=== PATIENT | male | born 1970 | race African-American/Black ===

== ENCOUNTER 2017-02-23 10:48 | Emergency (ER) | payer SELFPAY ==
[~2017-02-23] VITALS: Ht 177.8 cm; Wt 87.0 kg
[~2017-02-23 10:48] MED LIST: AUGM875T PO; NAPR500 PO; PERC5TAB12 PO
[2017-02-23 10:50] VITALS: BP 161/109; PULSE 85; RESP 20; TEMP 97.8; O2SAT 96
[2017-02-23] MEDS ORDERED: SODIUM CHLOR 0.9% 1000 ML INJ 1,000 ML IV SCH (11:06)
[2017-02-23] MEDS ORDERED: MORPHINE SULFATE 4 MG/ML INJ IV PUSH ONE (11:15)
[2017-02-23] MEDS ORDERED: ONDANSETRON HCL 4 MG/2 ML VIAL IVP ONE (11:15)
[2017-02-23] MEDS ORDERED: SODIUM CHLORIDE 0.9% FLUSH 10 ML FLUSH IV FLUSH PRN (11:15)
[2017-02-23] MEDS ORDERED: DIAZEPAM 5 MG TAB PO ONE (11:15)
[2017-02-23 11:51] LABS: AUTOMATED NEUTROPHIL # 5.4 TH/MM3 (1.8-7.7); BASOPHIL # 0.1 TH/MM3 (0-0.2); BASOPHIL % 1.1 % (0.0-2.0); EOSINOPHIL # 0.2 TH/MM3 (0-0.4); EOSINOPHIL % 2.7 % (0.0-4.0); HEMATOCRIT 42.3 % (39.0-51.0); HEMO FLAGS DIFF FINAL; LYMPH % 22.4 % (9.0-44.0); LYMPHOCYTE # 1.9 TH/MM3 (1.0-4.8); MEAN CELL VOLUME 93.2 FL (80.0-100.0); MEAN CORPUSCULAR HEMOGLOBIN 31.9 PG (27.0-34.0); MEAN CORPUSCULAR HGB CONC 34.2 % (32.0-36.0); MONO % 10.5 % (0.0-8.0); NEUT % 63.3 % (16.0-70.0); PLATELET COUNT 240 TH/MM3 (150-450); RED BLOOD COUNT 4.54 MIL/MM3 (4.50-5.90); RED CELL DISTRIBUTION WIDTH 12.9 % (11.6-17.2); WHITE BLOOD COUNT 8.5 TH/MM3 (4.0-11.0)
[2017-02-23 11:57] LABS: APTT (PATIENT) 23.7 SEC (24.3-30.1); PROTHROMBIN TIME - PATIENT 10.1 SEC (9.8-11.6)
[2017-02-23 12:05] LABS: BICARBONATE 25.4 MEQ/L (21.0-32.0); POTASSIUM 4.2 MEQ/L (3.5-5.1)
--- NOTE | 2017-02-23 12:18 | PD ---
HPI Chief Complaint: Back/ Neck Pain or Injury Time Seen by Provider: 11:00 Travel History International Travel<30 days: No Contact w/Intl Traveler<30days: No Traveled to known affect area: No History of Present Illness HPI 46-year-old Afro-[place] male presents the emergency department with 2 week history of intermittent right proximal lateral neck discomfort and pain. Patient denies any specific injury. He did not wake up with it. He states it is intermittent and worsening. Patient denies shortness of breath, cough, sore throat, no radiation to the right arm, numbness or tingling. Pain is 9 out of 10. He has no known drug allergies. PFSH Past Medical History Asthma: Yes Respiratory: Yes (ASTHMA) Social History Alcohol Use: Yes (2-3 BEERS A DAY) Tobacco Use: No Substance Use: No Allergies-Medications (Allergen,Severity, Reaction): Coded Allergies: No Known Allergies (Verified Allergy, Unknown, 02/23/17) Reported Meds & Prescriptions Reported Meds & Active Scripts Active Hydrocodone-Acetamin 5-325 mg (Hydrocodone/Acetaminophen) 5 Mg-325 Mg Tablet 1 Tab PO Q6HR Flexeril (Cyclobenzaprine HCl) 10 Mg Tab 10 Mg PO TID Prednisone 20 Mg Tab 20 Mg PO BID 7 Days Percocet 5-325 mg (Oxycodone/Acetaminophen) 1 Tab 1 Tab PO Q8HR PRN Naprosyn (Naproxen) 500 Mg Tab 500 Mg PO Q12HR PRN Augmentin 875 mg Tab (Amoxicillin & Pot Clavulanate 875 mg Tab) 875 Mg Tab 875 Mg PO Q12 10 Days Review of Systems Except as stated in HPI: all other systems reviewed are Neg General / Constitutional: No: Fever Eyes: No: Visual changes HENT: No: Headaches Cardiovascular: Positive: Diaphoresis, No: Chest Pain or Discomfort, Palpitations, Irregular Rhythm, Tachycardia Respiratory: No: Shortness of Breath Gastrointestinal: No: Nausea, Vomiting (see history present illness), Diarrhea , Abdominal Pain Genitourinary: No: Dysuria Musculoskeletal: Positive: Myalgias, Pain Skin: No Rash Neurologic: No: Weakness Psychiatric: No: Depression Endocrine: No: Polydipsia Hematologic/Lymphatic: No: Easy Bruising Physical Exam Narrative GENERAL: Patient appears in moderate distress. SKIN: Warm and or diaphoresis. Normal color. Normal turgor. No rash. HEAD: Atraumatic. Normocephalic. EYES: Pupils equal and round. No scleral icterus. No injection or drainage. ENT: No nasal bleeding or discharge. Mucous membranes pink and moist. Pharynx is clear. Airway is patent. NECK: Trachea midline. Patient has allergies to severe tenderness with palpation at the base of the right anterior lateral neck. There is no bony tenderness or step-off. Range of motion seems to be normal. There are no bruits Appreciated. CARDIOVASCULAR: Regular rate and rhythm. No murmurs gallops or rubs. RESPIRATORY: No accessory muscle use. Clear to auscultation. Breath sounds equal bilaterally. GASTROINTESTINAL: Abdomen soft, non-tender, nondistended. Hepatic and splenic margins not palpable. MUSCULOSKELETAL: Extremities without clubbing, cyanosis, or edema. No obvious deformities. NEUROLOGICAL: Awake and alert. No obvious cranial nerve deficits. Motor grossly within normal limits. Five out of 5 muscle strength in the arms and legs. Normal speech. PSYCHIATRIC: Appropriate mood and affect; insight and judgment normal. Data Data Last Documented VS Vital Signs Date Time Temp Pulse Resp B/P (MAP) Pulse Ox O2 Delivery O2 Flow Rate FiO2 02/23/17 13:30 69 20 140/93 (109) 96 02/23/17 10:50 97.8 Orders Orders Basic Metabolic Panel (Bmp) (02/23/17 11:06) Complete Blood Count With Diff (02/23/17 11:06) Prothrombin Time / Inr (Pt) (02/23/17 11:06) Act Partial Throm Time (Ptt) (02/23/17 11:06) Iv Access Insert/Monitor (02/23/17 11:06) Ecg Monitoring (02/23/17 11:06) Oximetry (02/23/17 11:06) NPO (02/23/17 11:06) Morphine Inj (Morphine Inj) (02/23/17 11:15) Ondansetron Inj (Zofran Inj) (02/23/17 11:15) Sodium Chlor 0.9% 1000 Ml Inj (Ns 1000 M (02/23/17 11:06) Sodium Chloride 0.9% Flush (Ns Flush) (02/23/17 11:15) Cta Neck W Iv Contrast W 3d (02/23/17 ) Ct Cerv Spine W/O Contrast (02/23/17 ) Diazepam (Valium) (02/23/17 11:15) Electrocardiogram (02/23/17 ) Iohexol 350 Inj (Omnipaque 350 Inj) (02/23/17 12:30) Morphine Inj (Morphine Inj) (02/23/17 13:00) Dexamethasone Inj (Decadron Inj) (02/23/17 13:30) Hydromorphone Pf Inj (Dilaudid Pf Inj) (02/23/17 13:30) Labs Laboratory Tests Test 02/23/17 11:25 White Blood Count 8.5 TH/MM3 Red Blood Count 4.54 MIL/MM3 Hemoglobin 14.5 GM/DL Hematocrit 42.3 % Mean Corpuscular Volume 93.2 FL Mean Corpuscular Hemoglobin 31.9 PG Mean Corpuscular Hemoglobin Concent 34.2 % Red Cell Distribution Width 12.9 % Platelet Count 240 TH/MM3 Mean Platelet Volume 7.7 FL Neutrophils (%) (Auto) 63.3 % Lymphocytes (%) (Auto) 22.4 % Monocytes (%) (Auto) 10.5 % Eosinophils (%) (Auto) 2.7 % Basophils (%) (Auto) 1.1 % Neutrophils # (Auto) 5.4 TH/MM3 Lymphocytes # (Auto) 1.9 TH/MM3 Monocytes # (Auto) 0.9 TH/MM3 Eosinophils # (Auto) 0.2 TH/MM3 Basophils # (Auto) 0.1 TH/MM3 CBC Comment DIFF FINAL Differential Comment Prothrombin Time 10.1 SEC Prothromb Time International Ratio 1.0 RATIO Activated Partial Thromboplast Time 23.7 SEC Blood Urea Nitrogen 14 MG/DL Creatinine 1.18 MG/DL Random Glucose 94 MG/DL Calcium Level 8.3 MG/DL Sodium Level 139 MEQ/L Potassium Level 4.2 MEQ/L Chloride Level 105 MEQ/L Carbon Dioxide Level 25.4 MEQ/L Anion Gap 9 MEQ/L Estimat Glomerular Filtration Rate 81 ML/MIN MDM Medical Decision Making Medical Screen Exam Complete: Yes Emergency Medical Condition: Yes Differential Diagnosis Right anterior lateral neck pain. Muscle skeletal pain. Possible aneurysm. Cardiac syndrome. Narrative Course She is discussed with and examined by Dr. Gonzalez. Orders place including EKG, CBC, BMP, PT PTT and INR. IV access is obtained, and patient is given 4 mg morphine IV as well as 4 mg of Zofran IV, as well as diazepam 5 mg by mouth. Patient is given 1000 mL normal saline bolus. CT of the cervical spine without contrast is ordered as well as a CT of the neck with IV contrast to evaluate vasculature. EKG is unremarkable with a normal sinus rhythm. This is reviewed with Dr. Gonzalez. Patient is given an additional 6 mg of morphine IV. Labs are unremarkable. CT of the neck and CTA are also unremarkable for acute process. The patient's symptoms are felt to be a muscle skeletal in origin. Patient will be sent home on prednisone 20 mg twice a day 7 days. Is given Lortab 5/325 one every 6 hours when necessary #12. Patient is given Flexeril 10 mg up to 3 times a day #30. Is to use heat followed by ice and gentle stretching and follow-up with his primary care physician as needed. Patient can return with worsening symptoms as needed. Diagnosis Primary Impression: Spasmodic torticollis Referrals: [facility] Primary Care Physician Patient Instructions: General Instructions, Narcotic given in the ED, Spasmodic Torticollis (ED) Additional Instructions: The patient's symptoms are felt to be a muscle skeletal in origin. Patient will be sent home on prednisone 20 mg twice a day 7 days. Is given Lortab 5/325 one every 6 hours when necessary #12. Patient is given Flexeril 10 mg up to 3 times a day #30. Is to use heat followed by ice and gentle stretching and follow-up with his primary care physician as needed. Patient can return with worsening symptoms as needed. Med/Other Pt SpecificInfo: Prescription(s) given Scripts Hydrocodone/Acetaminophen (Hydrocodone-Acetamin 5-325 mg) 5 Mg-325 Mg Tablet 1 TAB PO Q6HR for Pain, #7 TAB Prov: Mattie Gonzalez DO 02/23/17 Cyclobenzaprine (Flexeril) 10 Mg Tab 10 MG PO TID for Muscle Spasm, #30 TAB 0 Refills Prov: Mattie Gonzalez DO 02/23/17 Prednisone (Prednisone) 20 Mg Tab 20 MG PO BID for 7 Days, #14 TAB 0 Refills Prov: Mattie Gonzalez DO 02/23/17 Disposition: 01 DISCHARGE HOME Condition: Stable Doyle Mendoza Feb 23, 2017 12:18
[2017-02-23] MEDS ORDERED: IOHEXOL 350 MG/ML 10 ML VIAL (for RAD DIAG) IVCONTRAST ONE (12:30)
[2017-02-23] MEDS ORDERED: MORPHINE SULFATE 8 MG/ML INJ IV PUSH ONE (13:00)
--- NOTE | 2017-02-23 13:04 | RADRPT ---
EXAM DATE/TIME: 02/23/2017 12:33 [facility] COMPARISON: No previous studies available for comparison. INDICATIONS : Right sided neck pain for two weeks. RADIATION DOSE: 25.04 CTDIvol (mGy) MEDICAL HISTORY : None SURGICAL HISTORY : None. ENCOUNTER: Initial ACUITY: 2 weeks PAIN SCALE: 7/10 LOCATION: Right neck TECHNIQUE: Volumetric scanning of the cervical spine was performed. Multiplanar reconstructions in the sagittal, coronal and oblique axial planes were performed. Using automated exposure control and adjustment o f the mA and/or kV according to patient size, radiation dose was kept as low as reasonably achievable to obtain optimal diagnostic quality images. DICOM format image data is available electronically f or review and comparison. FINDINGS: VERTEBRAE: Normal vertebral body height. ALIGNMENT: Reversal of cervical lordosis centered at C3-4. Sagittal alignment is otherwise maintained. C2-C3: Minimal diffuse disc bulge and mild facet arthropathy. No significant central canal or bony neural fo raminal stenosis. C3-C4: Mild diffuse disc bulge without significant central canal or neural foraminal stenosis. C4-C5: The bony spinal canal is normal in size. No evidence of disc bulge or herniation. The neural forami na are bilaterally patent. C5-C6: The bony spinal canal is normal in size. No evidence of disc bulge or herniation. The neural forami na are bilaterally patent. C6-C7: The bony spinal canal is normal in size. No evidence of disc bulge or herniation. The neural forami na are bilaterally patent. C7-T1: The bony spinal canal is normal in size. No evidence of disc bulge or herniation. The neural forami na are bilaterally patent. CONCLUSION: 1. No acute fracture or subluxation. 2. Reversal of cervical lordosis centered at C3-4 with mild degenerative spondylosis of the cervical spine at C2-4. 3. No significant bony central canal or neuroforaminal stenosis. MRI examination may be performed for better evaluation if there is continued clinical concern. Berry Choi MD on February 23, 2017 at 12:57 Board Certified Radiologist. This report was verified electronically.
[2017-02-23 13:30] VITALS: BP 140/93; PULSE 69; RESP 20; O2SAT 96
[2017-02-23] MEDS ORDERED: DEXAMETHASONE SOD PHOS 20 MG/5 ML VIAL IV PUSH ONE (13:30)
[2017-02-23] MEDS ORDERED: HYDROmorphone HCL PF 1 MG/ML VIAL IVS ONE (13:30)
--- NOTE | 2017-02-23 14:17 | RADRPT ---
EXAM DATE/TIME: 02/23/2017 12:33 [facility] COMPARISON: No previous studies available for comparison. INDICATIONS : Right sided neck pain for two weeks. IV CONTRAST: 80 cc Omnipaque 350 (iohexol) IV RADIATION DOSE: 28.31 CTDIvol (mGy) MEDICAL HISTORY : None SURGICAL HISTORY : None. ENCOUNTER: Initial ACUITY: 2 weeks PAIN SCALE: 7/10 LOCATION: Right neck Elevated flow velocities and ICA/CCA ratios have been found to correlate with increased degrees of vessel stenosis, calculated as percentage of diameter relative to a normal segment of distal ICA/CCA. TECHNIQUE: Volumetric scanning was performed using a multirow detector CT scanner. The data was post processed with a variety of visualization algorithms including full-volume maximum intensity projection, multip lanar sliding thin-slab reformation, curved-planar reformation, and surface-rendering techniques. Us ing automated exposure control and adjustment of the mA and/or kV according to patient size, radiatio n dose was kept as low as reasonably achievable to obtain optimal diagnostic quality images. DICOM f ormat image data is available electronically for review and comparison. FINDINGS: AORTIC ARCH: There is a three-vessel origin of the great vessels from the aorta. No evidence of ostial narrowing. There is some tortuosity of the 3 vessels. RIGHT CAROTID: The common carotid artery is intact. The carotid bulb has a normal configuration without ulceration o r narrowing. The internal carotid artery lumen is smooth without stenosis. The external carotid lianne ry is intact. LEFT CAROTID: The common carotid artery is intact. The carotid bulb has a normal configuration without ulceration or narrowing. The internal carotid artery lumen is smooth without stenosis. The external carotid ar merrick is intact. There is some tortuosity involving the proximal common carotid artery. VERTEBRALS: The vertebral arteries have a symmetric diameter. No stenotic lesions are seen. CONCLUSION: 1. There is some tortuosity of the vessels as noted above. 2. Otherwise, unremarkable CTA of the carotids. Hong Aldridge MD on February 23, 2017 at 14:12 Board Certified Radiologist. This report was verified electronically.
[2017-02-23] MEDS ORDERED: PRED20 PO (14:26)
[2017-02-23] MEDS ORDERED: HYDR-3516 PO (14:26)
[2017-02-23] MEDS ORDERED: CYCL10TA PO (14:26)
--- NOTE | 2017-02-24 12:30 | EKG ---
Date Performed: 02/23/2017 Time Performed: 11:51:52 PTAGE: 46 years EKG: Sinus rhythm NORMAL ECG NO PREVIOUS TRACING DOCTOR: Mikhail Stearns Interpretating Date/Time 02/24/2017 12:29:02
== END 2017-02-23 15:23 | disposition home or self-care (01) ==
LOC: NEPD 10:48
DX: G24.3 Spasmodic torticollis (principal)
CPT/HCPCS: 70498; 72125; 80048; 85025; 85610; 85730; 93005; 96361; 96374; 96375; 96376; 99285; J1100; J1170; J2270; J2405; J7030; Q9967